=== PATIENT | male | born 1975 | race African-American/Black ===

== ENCOUNTER 2019-01-22 12:26 | Emergency (ER) | payer OTHER ==
[~2019-01-22] VITALS: Ht 182.9 cm; Wt 90.8 kg
[~2019-01-22 12:26] MED LIST: LEVAQUIN 500 M500 M2 PO
[2019-01-22 12:29] VITALS: BP 149/103
[2019-01-22] MEDS ORDERED: ULTRAM 50MG TAB50 MG PO (13:49)
== END 2019-01-22 13:58 | disposition home or self-care (01) ==
LOC: ER 12:26
DX: S92.421A Displaced fracture of distal phalanx of right great toe, initial encounter for closed fracture (principal); Z88.8 Allergy status to other drugs, medicaments and biological substances; W18.40XA Slipping, tripping and stumbling without falling, unspecified, initial encounter; Y93.02 Activity, running; Y92.89 Other specified places as the place of occurrence of the external cause; Y99.8 Other external cause status